=== PATIENT | male | born 1990 | race Caucasian/White ===

== ENCOUNTER → 2023-02-06 | Day surgery (SDC) | payer OTHER ==
[~2023-02-06] MED LIST: Acetaminophen/HYDROcodone 325-5 MG Tab PO ONE; Bupivacaine 0.5%/EPINEPHrine 1:200,000 50 ML MDV ONE; HYDROmorphone 0.5 MG/0.5 ML Syringe IVPUSH PRN; HYDROmorphone 0.5 MG/0.5 ML Syringe ONE; Iopamidol 612 MG/ML 100 ML Bottle IVPUSH ONE; Ketorolac 30 MG/ML SDV ONE; LORazepam 2 MG/ML SDV IVPUSH ONE; Lactated Ringers 1,000 ML IV SCH; Lidocaine 1% 2 ML ONE; Morphine 2 MG/ML SYRINGE IVPUSH ONE; Morphine 4 MG/ML Syringe IVPUSH ONE; Ondansetron 4 MG/2 ML SDV IVPUSH ONE; Ondansetron 4 MG/2 ML SDV IVPUSH PRN; Ondansetron 4 MG/2 ML SDV ONE; Ondansetron 8 MG in Sodium Chloride 0.9% 50 ML IV ONE; Propofol 200 MG/20 ML SDV ONE; Rocuronium 50 MG/5 ML Vial ONE; Sodium Chloride 0.9% 10 ML Syringe FLUSH STA; Sugammadex Sodium 200 MG/2 ML VIAL ONE; ceFAZolin 2 GM in Sodium Chloride 0.9% 50 ML IV ONE; fentaNYL 100 MCG/2 ML SDV IVPUSH PRN; fentaNYL 100 MCG/2 ML SDV ONE; metroNIDAZOLE/Normal Saline 500 MG in Premix Bag 1 BAG IV ONE
[2023-02-06 09:22] LABS: ESTIMATED GFR 81 mL/min (>60)
== END | disposition home or self-care (01) ==
LOC: JD.ED 07:54 → JD.SDS 11:51
PROVIDERS: ATTEND Specialist
DX: K35.30 Acute appendicitis with localized peritonitis, without perforation or gangrene (principal); F41.9 Anxiety disorder, unspecified; F32.A Depression, unspecified
CPT/HCPCS: 36415; 44970; 74177; 80053; 81001; 83690; 84484; 85025; 96360; 96361; 99285; A9270; J1170; J1885; J2060; J2270; J2405; J2704; J3010; J3490; J7120; Q9967; 00840